=== PATIENT | female | born 1965 | race Asian ===

== ENCOUNTER 2016-08-27 06:01 | Day surgery (SDC) | payer OTHER ==
[2016-08-26 09:04] VITALS: BMI 25.4
[~2016-08-27 06:01] MED LIST: LIDOCAINE 1%/EPI 1:100000 (20 ML MULTI DOSE VIAL) INF ONE
[2016-08-27] MEDS ORDERED: LIDOCAINE 1%/EPI 1:100000 (50 ML MULTI DOSE VIAL) ONE (07:16)
[2016-08-27] MEDS ORDERED: PROPOFOL 20 ML ONE (07:37)
[2016-08-27] MEDS ORDERED: MIDAZOLAM HCL 2 MG/2 ML SINGLE DOSE VIAL ONE (07:38)
[2016-08-27] MEDS ORDERED: ROCURONIUM BROMIDE 50 MG/5 ML VIAL ONE (07:38)
--- NOTE | 2016-08-27 07:47 | HP ---
History & Physical Update - Physical Physical: No Change - Assessment Assessment: No Change - Plan Plan: No Change (Left nasal ?pyogenic granuloma. Removal under anesthesia.)
[2016-08-27] MEDS ORDERED: DEXAMETHASONE SOD PHOSPHATE 4 MG/1 ML VIAL ONE (07:57)
[2016-08-27] MEDS ORDERED: LIDOCAINE 1%/EPI 1:100000 (20 ML MULTI DOSE VIAL) INF ONE (08:09)
[2016-08-27] MEDS ORDERED: BACITRACIN 30 GM TUBE TOPICAL OINTMENT ONE (08:14)
[2016-08-27] MEDS ORDERED: BACITRACIN 30 GM TUBE TOPICAL OINTMENT TP ONE (08:15)
[2016-08-27] MEDS ORDERED: NEOSTIGMINE METHYLSULFATE 0.5 MG/ML - 10 ML MDV ONE (08:23)
[2016-08-27] MEDS ORDERED: GLYCOPYRROLATE 0.2 MG/1 ML VIAL ONE ×2 (08:23→08:29)
[2016-08-27] MEDS ORDERED: ONDANSETRON 4 MG/2 ML VIAL IVPUSH PRN (08:42)
[2016-08-27] MEDS ORDERED: ACETAMINOPHEN 325 MG TABLET (FP) PO PRN (08:42)
[2016-08-27] MEDS ORDERED: oxyCODONE HCL 5 MG TABLET PO PRN (08:42)
[2016-08-27] MEDS ORDERED: KETOROLAC TROMETHAMINE 30 MG/1 ML VIAL IM ONE (08:43)
[2016-08-27] MEDS ORDERED: LACTATED RINGERS SOLUTION 1,000 ML IV SCH (08:45)
--- NOTE | 2016-08-27 08:57 | OP ---
Operative Note - Note: Operative Date: 08/27/16 Pre-Operative Diagnosis: Left Nasal Lesion Operation: Removal left sinonasal lesion Findings: Left nasal polyp/lesion Post-Operative Diagnosis: Same as Pre-op Surgeon: Kee Jimenez Anesthesiologist/OTR FLATBED DRIVER: Thais Richardson Anesthesia: General Estimated Blood Loss (mls): 5 Fluid Volume Replaced (mls): 300 Operative Report Dictated: Yes
[2016-08-27 09:41] VITALS: TEMP 98.1
--- NOTE | 2016-08-27 09:57 | OP ---
DATE OF OPERATION: 08/27/2016 ATTENDING SURGEON: Rosaline Ponce MD ANESTHESIOLOGIST: Thais Richardson MD PREOPERATIVE DIAGNOSIS: Left nasal lesion. POSTOPERATIVE DIAGNOSIS: Left nasal lesion. PROCEDURE PERFORMED: Removal of left sinonasal polyp/lesion. ANESTHESIA: General endotracheal anesthesia. INTRAVENOUS FLUIDS: 300 mL. ESTIMATED BLOOD LOSS: 5 mL. INDICATION: The patient is a 50-year-old woman who presented with progressively enlarging left nasal mass which caused nasal obstruction as well as epistaxis. She was found to have an obstructing, fleshy left nasal polyp/mass. CT scan confirmed its anterior location, either coming off the inferior turbinate or septum. No other abnormalities were seen on endoscopy in the office nor on CT scan. The patient was felt to be a candidate for the aforementioned surgical procedure. After explaining the benefits, risks, limitations, and alternatives, all questions were answered and she demonstrated her understanding. Informed consent was given. She understands there is no guaranteed outcome of surgery and that further medical and/or surgical treatment may be necessary. FINDINGS: Vascular left nasal lesion tethered off of the inferior turbinate. PROCEDURE IN DETAIL: The patient was taken from the preoperative area to the OR and placed on the table in supine position. General anesthesia was induced and the patient was intubated. Timeout was called and she received a perioperative dose of steroid. Timeout was called, and the correct surgical site was verified. Lidocaine with epinephrine was infiltrated into and around the lesion in conjunction with the anesthesiologist monitoring her vital signs. Once the patient was prepped and draped in standard fashion, a was used to examine the polyp closely to see where it was tethered. Its stalk was seen to be coming from the medial aspect of the inferior turbinate roughly 2 cm from the head of the inferior turbinate. Bipolar electrocautery, protective tips were then used to cauterize the stalk of the lesion, and the polyp was removed and handed off for pathology. There was minimal bleeding at the cauterized stalk. A suction Bovie was then used to cauterize the base as well as to treat any potential residual tissue from the lesion. Nasopore dressing was then applied to this area. The patient was returned to the care of the anesthesiology team for awakening and extubation. All counts were correct. I was present for and performed this entire procedure. ROSALINE PONCE M.D. ROSANNA/[id number]
[2016-08-27 10:12] VITALS: PULSE 65
[2016-08-27] MEDS ORDERED: ACETAMINOPHEN 325 MG TABLET (FP) ONE (10:33)
[2016-08-27] MEDS ORDERED: oxyCODONE HCL 5 MG TABLET ONE (10:42)
[2016-08-27 10:57] VITALS: BP 115/57
--- NOTE | 2016-08-31 08:59 | PATH ---
Surgical Pathology Report Patient Name: SAMMIE HERNANDEZ [facility]. Rec. #: [id number] /Age/Gender: 1965 (Age: 50) / F Account: [id number] Location: [facility] SURGICAL Taken: 08/27/2016 Received: 08/27/2016 Reported: 08/31/2016 Physicians: Kee Jimenez M.D. Specimen(s) Received NASAL POLYP, LEFT Clinical History Nasal polyp Final Diagnosis NASAL POLYP, LEFT, EXCISION: BENIGN VASCULAR NEOPLASM, CONSISTENT WITH LOBULAR CAPILLARY HEMANGIOMA (PYOGENIC GRANULOMA). Electronically Signed Pedro Sanchez M.D. Gross Description Received in formalin, labeled "nasal polyp left" is a fragment of nair soft tissue measuring 1.6 x 1.5 x 0.5 cm. The specimen is trisected and entirely submitted in one cassette. (AF) [email or web address]/08/27/2016
== END 2016-08-27 11:30 | disposition home or self-care (01) ==
LOC: JASU-SURG 06:01
PROVIDERS: ATTEND Otolaryngology Facial Plastic Surgery
PROC: 09BL0ZX Excision of Nasal Turbinate, Open Approach, Diagnostic (ICD-10-PCS; principal; 2016-08-27 07:30)
DX: J33.0 Polyp of nasal cavity (principal)
CPT/HCPCS: 88305-TC; 94760

== ENCOUNTER 2017-05-01 22:25 | Emergency (ER) | payer OTHER ==
[2017-05-01 22:37] VITALS: BP 135/92; PULSE 80; BMI 23.9
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
== END 2017-05-02 07:01 | disposition home or self-care (01) ==
LOC: JER 22:25
PROC: 0HQ1XZZ Repair Face Skin, External Approach (ICD-10-PCS; principal; 2017-05-01)
DX: S02.2XXA Fracture of nasal bones, initial encounter for closed fracture (principal); S01.21XA Laceration without foreign body of nose, initial encounter; Y93.89 Activity, other specified; Y92.038 Other place in apartment as the place of occurrence of the external cause; Y99.8 Other external cause status; Y07.01 Husband, perpetrator of maltreatment and neglect; Y00.XXXA Assault by blunt object, initial encounter
CPT/HCPCS: 12011; 70450-TC; 70486-TC; 99283-25

== ENCOUNTER 2023-06-20 04:55 | Day surgery (SDC) | payer OTHER ==
[2023-06-17 14:11] VITALS: BMI 24.0
[2023-06-20 10:08] VITALS: BP 111/53; PULSE 57; RESP 16; TEMP 98
== END 2023-06-20 09:58 | disposition home or self-care (01) ==
LOC: JASU-ENDO 04:55
PROVIDERS: ATTEND Internal Medicine Gastroenterology
PROC: 0DBL8ZX Excision of Transverse Colon, Via Natural or Artificial Opening Endoscopic, Diagnostic (ICD-10-PCS; 2023-06-20)
PROC: 0DB48ZX Excision of Esophagogastric Junction, Via Natural or Artificial Opening Endoscopic, Diagnostic (ICD-10-PCS; 2023-06-20)
PROC: 0DB78ZX Excision of Stomach, Pylorus, Via Natural or Artificial Opening Endoscopic, Diagnostic (ICD-10-PCS; 2023-06-20)
PROC: 0DB68ZX Excision of Stomach, Via Natural or Artificial Opening Endoscopic, Diagnostic (ICD-10-PCS; 2023-06-20)
PROC: 0DBM8ZX Excision of Descending Colon, Via Natural or Artificial Opening Endoscopic, Diagnostic (ICD-10-PCS; principal; 2023-06-20 08:00)
DX: Z12.11 Encounter for screening for malignant neoplasm of colon (principal); K64.8 Other hemorrhoids; K63.89 Other specified diseases of intestine; K29.50 Unspecified chronic gastritis without bleeding; K21.00 Gastro-esophageal reflux disease with esophagitis, without bleeding
CPT/HCPCS: 88305-TC; 88312-TC; 88342-TC

== ENCOUNTER 2024-02-11 13:12 | Emergency (ER) | payer OTHER ==
[2024-02-11 13:36] VITALS: BP 139/80; PULSE 108; RESP 20; TEMP 98; BMI 25.7
[2024-02-11] MEDS: SODIUM CHLORIDE 0.9% 500 ML INFUS.BAG IV ONE (14:22)
[2024-02-11 14:23] LABS: BASO % 0.5 % (0-2.0); EOS % 1.2 % (0-4.5); HEMATOCRIT 35.7 % (32.4-45.2); HEMOGLOBIN 11.8 GM/dL (10.7-15.3); LYMPH % 15.8 % (8-40); MCH 27.2 pg (25.7-33.7); MCHC 33.1 g/dl (32.0-36.0); MEAN CELL VOLUME 82.1 fl (80-96); MEAN PLT VOLUME 7.9 fl (7.5-11.1); MONO % 6.7 % (3.8-10.2); NEUT % 75.8 % (42.8-82.8); PLATELET COUNT 300 10^3/uL (134-434); RBC 4.35 M/mm3 (3.60-5.2); RDW 16.4 % (11.6-15.6); WHITE BLOOD COUNT 10.9 K/mm3 (4.0-10.0)
[2024-02-11] MEDS ORDERED: ACETAMINOPHEN INJECTION 100 ML ONE (14:24)
[2024-02-11] MEDS: ACETAMINOPHEN 1000 MG/100 ML BAG IVPB ONE (14:31)
[2024-02-11 14:48] LABS: CHLORIDE 104 mmol/L (98-107); SODIUM 137 mmol/L (136-145)
[2024-02-11 14:49] LABS: ALBUMIN 3.6 g/dl (3.4-5.0); BLOOD UREA NITROGEN 17.4 mg/dL (7-18); CALCIUM 8.6 mg/dL (8.5-10.1); CO2 23 mmol/L (21-32); GLUCOSE,RANDOM 120 mg/dL (74-106)
[2024-02-11 14:52] LABS: ANION GAP 10 mmol/L (4-13); POTASSIUM 8.6 mmol/L (3.5-5.1)
[2024-02-11 14:53] LABS: CREATININE 0.9 mg/dL (0.55-1.3); SGOT/AST 109 U/L (15-37)
[2024-02-11 14:55] LABS: BILIRUBIN,TOTAL 0.4 mg/dL (0.2-1); TOT PROT 8.1 g/dl (6.4-8.2)
[2024-02-11 14:56] LABS: ALK PHOS 104 U/L (45-117); SGPT/ALT 46 U/L (13-61)
[2024-02-11] MEDS ORDERED: levETIRAcetam 500 MG/5 ML INJECTION VIAL IVPB ONE (16:05)
[2024-02-11] MEDS: levETIRAcetam 500 MG/5 ML INJECTION VIAL IVPB ONE (16:23)
[2024-02-11 16:35] LABS: POTASSIUM 4.4 mmol/L (3.5-5.1)
[2024-02-11 16:37] LABS: ALBUMIN 3.6 g/dl (3.4-5.0); BLOOD UREA NITROGEN 16.3 mg/dL (7-18); CALCIUM 8.6 mg/dL (8.5-10.1)
[2024-02-11 16:40] LABS: CREATININE 0.7 mg/dL (0.55-1.3)
[2024-02-11 16:42] LABS: BILIRUBIN,TOTAL 0.3 mg/dL (0.2-1); TOT PROT 7.2 g/dl (6.4-8.2)
[2024-02-11 16:51] LABS: EPI CELLS 1 /uL (0-25.1); HYALINE CASTS 0 /uL (0-3.1); URINE APPEARANCE CLEAR; URINE BACTERIA 6 /uL (0-1359); URINE BILIRUBIN NEGATIVE (NEGATIVE); URINE COLOR YELLOW; URINE GLUCOSE (UA) NEGATIVE (NEGATIVE); URINE KETONE NEGATIVE (NEGATIVE); URINE LEUK ESTERASE NEGATIVE (NEGATIVE); URINE NITRITE NEGATIVE (NEGATIVE); URINE PROTEIN NEGATIVE (NEGATIVE); URINE RBC 22 /uL (0-23.9); URINE UROBILINOGEN 0.2 mg/dL (0.2-1.0); URINE WBC 0 /uL (0-25.8)
[2024-02-11 17:15] LABS: BLOOD UREA NITROGEN 14.5 mg/dL (7-18); CALCIUM 8.5 mg/dL (8.5-10.1)
[2024-02-11 17:19] LABS: CREATININE 0.8 mg/dL (0.55-1.3)
== END 2024-02-11 18:48 | disposition home or self-care (01) ==
LOC: JER 13:12
PROC: 3E033NZ Introduction of Analgesics, Hypnotics, Sedatives into Peripheral Vein, Percutaneous Approach (ICD-10-PCS; principal; 2024-02-11)
PROC: 3E033GC Introduction of Other Therapeutic Substance into Peripheral Vein, Percutaneous Approach (ICD-10-PCS; 2024-02-11)
DX: G40.909 Epilepsy, unspecified, not intractable, without status epilepticus (principal); U07.1 COVID-19
CPT/HCPCS: 0241U-QW; 36415; 70450-TC; 71045-TC-FY; 80048; 80053; 81003; 85025; 87086; 93005; 93010; 99285-25; J0131